=== PATIENT | female | born 1935 | race Caucasian/White ===

== ENCOUNTER 2016-08-15 10:31 | Outpatient (CLI) | payer MEDICARE, OTHER | END 2016-08-15 10:32 | disposition home or self-care (01) | LOC: RT 10:31 | PROVIDERS: ATTEND Internal Medicine Cardiovascular Disease | DX: I25.10 Atherosclerotic heart disease of native coronary artery without angina pectoris (principal) | CPT/HCPCS: 93005 ==

== ENCOUNTER 2016-10-18 10:49 | Outpatient (CLI) | payer MEDICARE ==
--- NOTE | 2016-10-21 08:42 | Ultrasound Report ---
BILATERAL LOWER EXTREMITY ABIs: 10/18/2016 CLINICAL INDICATION: Edema. TECHNIQUE: Real-time sonographic vascular imaging was performed by the fire control mechanic through the lower extremities utilizing both color-flow and Doppler flow analysis. Multiple inside sales representative static images were saved for review. RIGHT SIDE SITE PSV WAVEFORM STEN BACON SLICER 24.6 biphasic DPA 16.9 biphasic LEFT SIDE SITE PSV WAVEFORM STEN BACON SLICER 39 biphasic DPA 19.3 biphasic TECHNIQUE: Real-time scanning was performed. SYSTOLIC PRESSURES RIGHT LEFT BRACHIAL ARTERY 143/76 147/86 POSTERIOR TIBIAL ARTERY 142/81 144/88 ANTERIOR TIBIAL ARTERY --- --- PERONEAL ARTERY --- --- ANKLE/ARM INDEX 0.99 0.97 FINDINGS: ABIs are normal, measuring 0.99 on the right and 0.97 on the left. IMPRESSION: NORMAL ABIs. USAMA
== END 2016-10-18 10:50 | disposition home or self-care (01) ==
LOC: DI 10:49
PROVIDERS: ATTEND Physician Assistant Medical
DX: R60.9 Edema, unspecified (principal)
CPT/HCPCS: 93922

== ENCOUNTER 2017-01-21 12:56 | Outpatient (CLI) | payer MEDICARE ==
[2017-01-21] MEDS ORDERED: IOPAMIDOL-300 100 ML VIAL IVP ONE ×3 (12:57→15:58)
[2017-01-21 13:32] LABS: CALCIUM 9.5 mg/dL (8.5-10.3); CREATININE 1.1 mg/dL (0.4-1.0); POTASSIUM 4.7 mmol/L (3.5-5.0)
[2017-01-21] MEDS ORDERED: ALBUTEROL NEB 2.5 MG/3 ML INH ONE (14:00)
[2017-01-21] MEDS ORDERED: IOPAMIDOL-300 100 ML VIAL ONE (14:08)
--- NOTE | 2017-01-22 09:44 | CT Report ---
CHEST CT WITH CONTRAST: 01/21/2017 COMPARISON STUDY: None. INDICATION: COPD. TECHNIQUE: Axial 5-mm imaging of the chest was performed from the thoracic inlet to the adrenal glan ds with 50 mL Isovue-300. Coronal and sagittal reformats were performed. In accordance with CT protocol optimization, one or more of the following dose reduction techniques w ere utilized for this exam: automated exposure control, adjustment of mA and/or KV based on patient size, or use of iterative reconstructive technique. FINDINGS: An 8-mm solid nodule of the right upper lobe, axial image 19. A 6-mm solid nodule of the right upper lobe, axial image 35. There is moderate pleural thickening on the left, [id number], of unknown chronicity. There is a ssociated atelectasis and/or scar. There are atherosclerotic calcifications of the aorta and coronary arteries. There is an ulcerated plaque of the descending aorta. Calcified gallstones are noted. Limited upper abdomen is otherwise incompletely evaluated. There is a transverse fracture of a mid thoracic vertebral body, likely chronic. IMPRESSION: 1. LEFT PLEURAL THICKENING IS OF UNCERTAIN ETIOLOGY, BUT LIKELY CHRONIC. CORRELATE CLINICALLY. 2. RIGHT UPPER LOBE PULMONARY NODULES ABOVE MEASURE UP TO 8 MM. FOLLOWUP IS AVAILABLE ACCORDING TO [facility]. 3. THORACIC VERTEBRA FRACTURE APPEARS CHRONIC, BUT CORRELATE CLINICALLY. 4. ULCERATED PLAQUE OF THE DESCENDING THORACIC AORTA. JOB #: [id number] EXT JOB #:[id number]
== END 2017-01-21 12:57 | disposition home or self-care (01) ==
LOC: LAB 12:56 → DI 12:57
PROVIDERS: ATTEND Physician Assistant Medical
DX: J44.9 Chronic obstructive pulmonary disease, unspecified (principal); R91.8 Other nonspecific abnormal finding of lung field; I70.0 Atherosclerosis of aorta
CPT/HCPCS: 36415; 71260; 80048; 94060; J7613; Q9967

== ENCOUNTER 2017-07-02 11:39 | Outpatient (CLI) | payer MEDICARE | END 2017-07-02 11:40 | disposition critical access hospital (66) | LOC: EMS 11:39 | PROVIDERS: ATTEND Surgery | DX: R06.02 Shortness of breath (principal); R05 Cough | CPT/HCPCS: A0425; A0429 ==

== ENCOUNTER 2017-07-02 11:57 | Inpatient (IN) | payer MEDICARE ==
--- NOTE | 2017-07-02 12:19 | ED Physician Documentation ---
PD HPI URI - Stated complaint Stated Complaint: COUGH - Chief complaint Chief Complaint: Resp - History obtained from History obtained from: Patient - History of Present Illness Timing - onset: How many days ago (few) Timing duration: Days (3-4) Timing details: Gradual onset, Still present Associated symptoms: Chills, Productive cough, Dyspnea, Other (general weakness) Contributing factors: Sick contact (her caregiver has had cough and Dx with pneumonia and is off work at home.) Review of Systems Constitutional: reports: Myalgias, Fatigue. denies: Fever, Chills Nose: reports: Congestion Cardiac: reports: Pedal edema. denies: Chest pain / pressure, Palpitations, Calf pain Respiratory: reports: Dyspnea, Cough GI: denies: Abdominal Pain, Nausea, Vomiting, Diarrhea Musculoskeletal: reports: Extremity swelling (chronic) Neurologic: reports: Generalized weakness. denies: Focal weakness, Numbness PD PAST MEDICAL HISTORY - Past Medical History Cardiovascular: Congestive heart failure Respiratory: None Neuro: None Endocrine/Autoimmune: None GI: None - Present Medications Home Medications: Ambulatory Orders Medication Instructions Recorded Confirmed Aspirin 81 mg PO 07/02/17 Furosemide [Lasix] 10 mg PO ONCE 07/02/17 07/02/17 Simvastatin 10 mg PO 07/02/17 Verapamil HCl 40 mg PO 07/02/17 - Allergies Allergies/Adverse Reactions: Allergies Allergy/AdvReac Type Severity Reaction Status Date / Time oxycodone Allergy Hallucinati Verified 07/02/17 12:05 ons - Family History Family history: reports: Non contributory PD ED PE NORMAL - Vitals Vital signs reviewed: Yes - General General: Alert and oriented X 3, No acute distress (mild tachypnea.), Well developed/nourished - HEENT HEENT: Ears normal, Pharynx benign - Neck Neck: Supple, no meningeal sign, No adenopathy - Cardiac Cardiac: RRR, No murmur - Respiratory Respiratory: No: Clear bilaterally (congested right base. Hilar/bronchial congestion with phlegm and she has difficulty getting good cough to clear it. Mild accessory muscle use. Severe kyphosis. ) - Abdomen Abdomen: Soft, Non tender - Female Female : Deferred - Rectal Rectal: Deferred - Back Back: No CVA TTP - Derm Derm: Normal color, Warm and dry - Extremities Extremities: No deformity, No tenderness to palpate, No calf tenderness / cord, Other (1+ edema in both ankles) - Neuro Neuro: Alert and oriented X 3, No motor deficit, Normal speech - Psych Psych: Normal mood, Normal affect Results - Vitals Vitals: Vital Signs - 24 hr 07/02/17 07/02/17 07/02/17 12:00 13:09 15:00 Temperature 37.4 C Heart Rate 93 86 83 Respiratory 26 H 28 H 26 H Rate Blood Pressure 168/96 H 128/75 O2 Saturation 91 L 91 L Oxygen O2 Source Nasal cannula - Labs Labs: Laboratory Tests 07/02/17 15:06 WBC 6.3 RBC 3.78 L Hgb 12.3 Hct 39.1 MCV 103.3 H MCH 32.5 H MCHC 31.4 L RDW 14.7 Plt Count 262 MPV 6.9 L Neut # 6.0 Lymph # 0.3 L [place] # 0.1 Eos # 0.0 Baso # 0.0 Absolute Nucleated RBC 0.02 Nucleated RBC % 0.3 PD MEDICAL DECISION MAKING - ED course Complexity details: re-evaluated patient (breathing improved with neb and some sputum cleared. However, off oxygen, she still goes down to 89-91% and is looking tachypneic. Better on oxygen. Will repeat neb. ), considered differential (seems like bronchitis vs pneumonia. Has mild hypoxia with some wheezing sounds and rattling phlegm. Habitus makes clearing sputum and coughing difficult. Will give IV abx and meds and talk with hospitalist. ), d/w patient Departure - Departure Clinical Impression: Hypoxia Pneumonia Qualifiers: Pneumonia type: due to unspecified organism Laterality: right Lung location: lower lobe of lung Qualified Code(s): J18.1 - Lobar pneumonia, unspecified organism Condition: Stable Record reviewed to determine appropriate education?: Yes
[2017-07-02] MEDS ORDERED: DEXAMETHASONE 10 MG/ML VIAL PO STA (12:43)
[2017-07-02] MEDS ORDERED: ALBUTEROL NEB 2.5 MG/3 ML INH STA (12:43)
[2017-07-02] MEDS ORDERED: BENZONATATE 100 MG CAPSULE PO STA (12:43)
[2017-07-02] MEDS ORDERED: CHERRY SYRUP 10 ML UDC PO ONE (12:59)
--- NOTE | 2017-07-02 14:41 | XRAY Preliminary Report ---
Exam: XR CHEST 2 VIEW X-RAY IMPRESSION: Right lower lobe airspace disease with small reactive right-sided pleural effusion. [facility] SITE ID: [id number]
--- NOTE | 2017-07-02 14:41 | XRAY Report ---
EXAM: CHEST RADIOGRAPHY EXAM DATE: 07/02/2017 02:13 PM. CLINICAL HISTORY: Productive cough x 3 days. COMPARISON: None. TECHNIQUE: 2 views. FINDINGS: Lungs/Pleura: Irregular opacities in the right lung base posteriorly with small, likely reactive, ple ural effusion on the right. Mediastinum: Severe kyphosis of the thoracic spine with limits evaluation of the mediastinal structur es. Other: None. IMPRESSION: Right lower lobe airspace disease with small reactive right-sided pleural effusion. [facility] Referring Provider Line: [phone] SITE ID: [id number]
[2017-07-02] MEDS ORDERED: cefTRIAXone 1 GM in SODIUM CHLORIDE 0.9% MINIBAG 100 ML IV STA (15:11)
[2017-07-02] MEDS ORDERED: AZITHROMYCIN INJ 500 MG in SODIUM CHLORIDE 0.9% 250 ML IV STA (15:11)
[2017-07-02 15:13] LABS: BASOPHILS % (AUTO) 0.5 %; HGB - HEMOGLOBIN 12.3 g/dL (12.0-16.0); LYMPHOCYTES # (AUTO) 0.3 10^3/uL (1.5-3.5); MEAN CORPUSCULAR HEMOGLOBIN 32.5 pg (27.0-31.0); MEAN CORPUSCULAR HGB CONC 31.4 g/dL (32.0-36.0); MEAN CORPUSCULAR VOLUME 103.3 fL (81.0-99.0); MEAN PLATELET VOLUME 6.9 fL (7.9-10.8); MONOCYTES # (AUTO) 0.1 10^3/uL (0.0-1.0); MONOCYTES % (AUTO) 1.6 %; NEUTROPHILS % (AUTO) 93.9 %; PLT - PLATELET COUNT 262 10^3/uL (130-450); RED BLOOD COUNT 3.78 10^6/uL (4.20-5.40); RED CELL DISTRIBUTION WIDTH 14.7 % (12.0-15.0); WHITE BLOOD COUNT 6.3 x10^3/uL (4.8-10.8)
[2017-07-02 15:24] LABS: ALBUMIN 3.7 g/dL (3.2-5.5); ALKALINE PHOSPHATASE 36 IU/L (42-121); ALT ALANINE AMINOTRANSFERASE < 10 IU/L (10-60); AST ASPARTATE AMINOTRANSFERASE 17 IU/L (10-42); BILIRUBIN,TOTAL 0.3 mg/dL (0.2-1.0); BUN - BLOOD UREA NITROGEN 27 mg/dL (6-20); CALCIUM 9.3 mg/dL (8.5-10.3); CARBON DIOXIDE - CO2 28 mmol/L (21-32); CHLORIDE 98 mmol/L (101-111); CREATININE 1.2 mg/dL (0.4-1.0); GFR - MDRD 43 (>89); GLUCOSE 104 mg/dL (70-100); LIPASE 21 U/L (22-51); SODIUM 137 mmol/L (135-145); TOTAL PROTEIN 7.5 g/dL (6.7-8.2)
[2017-07-02] MEDS ORDERED: ONDANSETRON ODT 4 MG TABLET TL PRN (15:30)
[2017-07-02] MEDS ORDERED: ONDANSETRON 4 MG/2 ML VIAL IVP PRN (15:30)
[2017-07-02] MEDS ORDERED: MORPHINE 2 MG/ML SYRINGE IVP STA (15:34)
[2017-07-02] MEDS: SODIUM CHLORIDE FLUSH 0.9% 10 ML SYRINGE IVP SCH (17:37)
--- NOTE | 2017-07-02 19:32 | HISTORY & PHYSICAL EXAMINATION ---
DATE OF SERVICE: 07/02/2017 Physician: Laverne Erwin MD PRIMARY CARE PROVIDER: MIROSLAVA Cooper ADMITTING PROVIDER: Laverne Erwin MD CHIEF COMPLAINT: Cough, chest congestion with decreasing appetite for 2 days. HISTORY OF PRESENT ILLNESS: The patient is an 82-year-old female who lives by herself, but has daily help with a care provider named Alyse. The patient herself has COPD, and smokes about half a pack a day on a daily basis. Her lung capacity and appetite are severely diminished by the fact that she has severe kyphoscoliosis of her spine. So her stomach is compressed, and her upper lung volumes are compressed. She has lost about 25-30 pounds over the last 5-6 years because of this. She lives in chronic daily pain. She eats frequent small meals, and was doing well. Her caregiver does most of the housework in the house and helps her get her food together, helps her bathe. She has no loss of cognitive function over the years. It is just physical disability that is diminished. Alyse, her caregiver, got lung cancer and has finished radiation and chemotherapy. She came down with pneumonia. She last saw Alyse on 06/30/2017. So she was by herself yesterday and started having cough, chest congestion. Today, the cough and chest congestion progressed to the point that she started to realize she really had no energy to get up and do anything. She started looking at her surroundings with a practical eye. She realized that she had no desire to want to eat, nor does she have a desire to get up and "rummage through the refrigerator" or get up to go to the bathroom. She recognizes that it is difficult to get her to doctor appointments. She would need a van, and that is a day in advance warning, and if she gets to the doctor's office, she sometimes has to wait anywhere from half an hour to 2 hours to get into that appointment. That then delays the van and sometimes she misses her van and has to ask her caregiver to pick her up. So she decided to call EMS and get straight to an evaluation here at the hospital rather than go to her doctor's office. She denies fever or chills. It has just been the cough, chest congestion, lack of appetite. In the emergency room, she was seen by Dr. Marvin who found her to be afebrile. Normotensive. 91% on room air when she came in. For the rest of her stay in the emergency room she required 2 liters nasal cannula. She was in no respiratory distress, but had some chest congestion. Chest x-ray shows a right lower lobe pneumonia. This patient is being followed for pulmonary nodules. She has 2 right upper lobe nodules on CT. She also has calcified pleural plaquing, and the same CTA showed her to have calcified gallstones, and an ulcerated thoracic aorta, though CT did not show infiltrate in the right lower lobe. The patient is now admitted for pneumonia. PAST MEDICAL HISTORY 1. Severe kyphoscoliosis with a C-curvature of her body habitus. This resulted ultimately in a patient who is always looking down or slightly forward, using a walker with slow limited mobility and chronic pain. She has been evaluated by Thoracic Surgery in [place], and she is not a candidate since most of her deformity is strictly from osteoporosis and compression fractures. Bracing will not help. In the past, she has been offered physical therapy with limited relief as a result and over the last couple of years she has really declined doing physical therapy. 2. Chronic obstructive pulmonary disease. Pneumonia in July 2010. Pulmonary function studies show her to have an FVC of 0.83, which is 39% of normal, an FEV1 of 0.77, which is 49% of normal, and an FEV1/FVC is 93%. She does respond to bronchodilators. The test is interpreted as severe restriction. Minimal obstruction. 3. Coronary artery disease. In 2004, she underwent a left cataract extraction with intraocular lens implant. One hour after surgery she had tremendous shortness of breath and slight chest pressure. She was taken to the emergency room where she was felt to be in pulmonary edema. An echocardiogram showed her to have left ventricular concentric hypertrophy that was mild, ejection fraction of 60-65% with grade [address] angiogram showed her to have proximal to mid left circumflex lesion that was severe. She was sent to see cardiology and cardiology scheduled her for coronary angiogram. The patient vaguely remembers that episode and does not remember any intervention being required. I do not have any report on that. She has recently been seen by Dr. Rome for her history of congestive heart failure. That was in the last year. Dr. Rome made no changes in her status or management. 4. Osteoporosis. Wedge compression fractures. Resulted in kyphosis, scoliosis. Chronic pain. In the past, she has been on calcium, vitamin D, and Boniva. 5. Right breast cancer with right mastectomy in 2000. 6. Pulmonary nodule as noted above. 7. Renal artery stenosis with right nephrectomy as treatment. 8. Intermittent hyperkalemia in the past. 9. Generalized osteoarthritis. 10. Hyperlipidemia. 11. Hypertension. 12. Chronic edema of the left leg since about 2012. She has had 2 venous Dopplers, and they have not shown any DVT. She has had gradually developing blue toe on that left leg. ABIs done in the last year here show the right leg to be 0.99 and the left leg to be 0.97. 13. Diverticulosis on colonoscopy in July 2009. 14. G0, P0. Last Pap smear was approximately mid , normal. 15. Functional constipation. Has been getting gradually worse over the last 2- 3 years. 16. Unanticipated weight loss secondary to stomach compression. ALLERGIES: SHE IS ALLERGIC TO OXYCODONE. This was in the form of Percocet, which made her hallucinate and get delirious. MEDICATIONS 1. Aspirin 81 mg a day. 2. Lasix 10 mg a day of a 20 mg tablet. She uses this as needed for the left leg edema. 3. Potassium 10 mEq a day. 4. Simvastatin 10 mg a day. 5. Verapamil 120 mg daily sustained release. SOCIAL HISTORY: She currently lives by herself. Has caregivers, for the last 5 years. First caregiver was a friend of hers and a male. Lived with her for 3 years. He moved out when he needed to be closer to his family. Her current caregiver is Alyse. They have hit it off really well. They both smoke, love to talk, love to watch TV. She is from her since 1980. Has not seen him in decades. She still relies on his [place] benefits so wants him to stay alive as long as possible. She does have an adopted son, he works for the [employer] in [place] and lives in [facility] from [facility]. She last saw him before [place], but they talk on the phone about once a week. She continues to smoke. Does about half a pack per day. When she tries to cut down, she will do 5 cigarettes a day. She drinks anywhere from 3 to 4 drinks at most on a daily basis and go down to 1 drink a day. Has done that for decades. She has no history of recreational substance abuse. 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 FAMILY HISTORY: Dad is of complications of brain mets from colon cancer. Mom had colon cancer. One half sibling had colon cancer. REVIEW OF SYSTEMS GENERAL: Exam shows her to have the weight loss over the last few years, decreasing mobility, increasing dependence on caregivers. HEENT: Vision is blurred, she wears readers, it is difficult for her to see the writing on the screen across from her in the bed where she watches the TV. She denies problems with swallowing, speaking. She has terrible dentition, is missing a few teeth and makes it hard for her to chew as well. No problems with deafness. Denies any problems with allergic rhinitis, ear problems, or eustachian tube dysfunction. PULMONARY: Chronically short of breath. Uses a walker because of it and walks very slowly. PFTs as above. New cough and phlegm in the last 2 days. No hemoptysis. CARDIAC: Positive as above. No recent angina, chronic left leg edema is maintained. No right leg edema. No palpitations. No jaw pain. GASTROINTESTINAL: She will get intermittently constipated. Require MiraLax. She will then have a blowout followed by liquid stool. No abdominal pain. She attributes the constipation to her body habitus and inability to eat a normal meal. For instance, the food brought her table tonight for dinner is "a lot." She says the plate brought to her for dinner here in the hospital is enough for a weeks worth of food. JOINTS: Hurt all over. Hands especially. The left blue toe is not painful at all. Chronic back pain, chronic thoracic pain. Chronic left leg edema. GRADING SUPERVISOR: Denies seizures, syncope, memory loss. While her physical status is definitely deteriorated, she stoutly maintains that she has great cognitive function. PHYSICAL EXAMINATION VITAL SIGNS: Temperature is 36.8, pulse is 87, blood pressure 118/58, respirations are 24. She is 95% on 2 liters. GENERAL: This lady is tiny and swallowed in her hospital bed. She is bent over and severely kyphotic to the point that her face almost faces down. She never looks directly at me because it is too difficult to lift up her head and look at me. But she is able to bring the plate down to her lap and slowly using her right and left hands brings food into her mouth and chew slowly. She is incredibly cachectic. HEAD AND NECK: Exam shows well groomed hair. Pupils that are reactive, sclerae are nonicteric. Moist and hydrated oral mucosa. Very poor teeth with some teeth missing in the upper gums. Hard for her to chew that pineapple. Neck has shotty adenopathy with no goiter or bruits. She looks like she has an old sebaceous cyst that is scarred over on the C-spine skin area. LUNGS: Diminished breath sounds at the bases, I do not hear anything at the apices because of probable compression. She has mild tachypnea, mild pursed lip breathing in talking to me and trying to eat, but no increased respiratory effort with no use of accessory muscles. PMI is difficult to get. I cannot have her lie down flat. CARDIAC: Exam has a regular rate and rhythm with a soft systolic murmur at the left lower sternal border, but I hear partial bowel sounds on top of that because of her body habitus. ABDOMEN: The abdomen shows a protuberant abdominal wall because of the C-spine curvature of her spine bringing her forward and down. Nontender, normal bowel sounds. EXTREMITIES: Left leg edema with chronic venous stasis hyperpigmentation on the left anterior marcos. The left great toe is blue, and she has 20 second delayed capillary refill. Again, nonpainful. She has osteoarthritic deformities of the fingers and toes. I do not feel left foot pulse. Right foot pulse on dorsalis pedis area barely palpable. The left leg is more stiff and extended at the knee and less flexible than the right leg. She thinks it is because she sits that way propping up her leg watching TV all day long. NEUROLOGIC: She is alert and oriented to person, place, and time. Can follow 2 -step commands. Cranial nerves appear remarkably intact in spite of the blurred vision with I not tested. She is using her arms spontaneously to do fine motor movement of getting a plate off the table, bringing food to her mouth, using a fork and knife, but preferring to use her fingers. No tremors. Generalized deconditioning and weakness of the upper extremities. Her lower extremities appear to be weaker than her arms. Left leg, particularly, in that it is more cumbersome and difficult to move, and she says that is because of edema, not so much weakness, but plantar and dorsiflexion is intact. She lifts both legs off the bed for me. LABORATORY DATA: Sodium 137, potassium 4.5, BUN 27, creatinine 1.2, random glucose 104, lactic acid 1.6. White cell count 6.3, hemoglobin 12.3, hematocrit 39.1, platelet 262. Chest x-ray as above. ASSESSMENT 1. Community-acquired pneumonia in an elderly female who lives alone, has decreased support services at this time, and has hypoxia on exam. Plan - Admission for IV antibiotics in the form of Rocephin and azithromycin. ATTESTATION: This patient will be admitted for less than 96 hours. Adjust antibiotics on the basis of blood cultures. Try to obtain sputum cultures. 2. Hypoxia. In looking at her pulmonary function studies before she has a severe obstruction, but there is no note of her oxygenation status that I can find. I will see if I can reread her pulmonary function tests and find what her baseline O2 saturation is. She may be chronically hypoxic on the basis of lung compression from her spinal deformity. Nevertheless, provide with 1-2 liters p.r.n. and keep O2 saturations greater than 92%. She does not appear to be in any acute respiratory failure. 3. Moderate calorie malnutrition in this lady who has decreased muscle mass diffusely, loss of weight 25-30 pounds in the last five years, and may be attributed strictly to the structural abnormalities of her spine causing cardiac, pulmonary, and stomach compression. Will start with just resuming a regular diet at this time. She may be a candidate for diet supplements. Do nutrition consult. 4. Hypertension. Controlled at this time. Resume usual medications. 5. Left toe cyanosis. Arterial brachial indices in the past have indicated relatively normal arterial brachial indices. But capillary refill is remarkably delayed. She does describe having Raynaud's in her hands and toes, but this is an isolated toe problem. She does have an ulcerated thoracic artery. We will recheck arterial brachial indices. She is concerned enough to wonder if her toe is going to , but it is remarkably nonpainful, so it may be Raynaud's in the end. 6. FULL CODE STATUS. 7. Deep venous thrombosis prophylaxis with HARLEEN guillen, if possible. If not, because of her inability to straighten out her body, she may need Venodynes instead. TD: 07/02/2017 19:31 MTDShannan
[2017-07-03] MEDS: SODIUM CHLORIDE FLUSH 0.9% 10 ML SYRINGE IVP SCH ×3 (00:58→20:53)
[2017-07-03] MEDS: ACETAMINOPHEN 325 MG TABLET PO PRN (02:52)
[2017-07-03 05:37] LABS: CALCIUM 8.4 mg/dL (8.5-10.3); CREATININE 1.5 mg/dL (0.4-1.0)
[2017-07-03 05:39] LABS: BASOPHILS % (AUTO) 0.1 %; HGB - HEMOGLOBIN 10.1 g/dL (12.0-16.0); LYMPHOCYTES % (AUTO) 13.2 %; MEAN CORPUSCULAR HEMOGLOBIN 32.6 pg (27.0-31.0); MEAN CORPUSCULAR HGB CONC 31.1 g/dL (32.0-36.0); MEAN CORPUSCULAR VOLUME 104.9 fL (81.0-99.0); MEAN PLATELET VOLUME 7.3 fL (7.9-10.8); MONOCYTES % (AUTO) 1.7 %; PLT - PLATELET COUNT 214 10^3/uL (130-450); RED BLOOD COUNT 3.09 10^6/uL (4.20-5.40); RED CELL DISTRIBUTION WIDTH 14.9 % (12.0-15.0)
[2017-07-03 05:46] LABS: WHITE BLOOD COUNT 1.6 x10^3/uL (4.8-10.8)
[2017-07-03 05:47] LABS: ABNORMAL LYMPHS % (MANUAL) 0 %
[2017-07-03 06:14] LABS: BAND NEUTROPHILS % (MANUAL) 1 %; DIFFERENTIAL COMMENT MANUAL DIFFERENTIAL; LYMPHOCYTES # (MANUAL) 0.2 10^3/uL (1.5-3.5); LYMPHOCYTES % (MANUAL) 15 %; NEUTROPHILS # (MANUAL) 1.3 10^3/uL (1.5-6.6); NEUTROPHILS % (MANUAL) 83 %; PLATELET ESTIMATE, MANUAL NORMAL (130-450,000) (NORMAL); RBC MORPHOLOGY (MULTIPLE) NORMAL APPEARANCE (NORMAL)
[2017-07-03 09:06] LABS: HGB - HEMOGLOBIN 11.3 g/dL (12.0-16.0); MEAN CORPUSCULAR HEMOGLOBIN 33.3 pg (27.0-31.0); MEAN CORPUSCULAR HGB CONC 31.6 g/dL (32.0-36.0); MEAN CORPUSCULAR VOLUME 105.3 fL (81.0-99.0); MEAN PLATELET VOLUME 7.4 fL (7.9-10.8); RED BLOOD COUNT 3.39 10^6/uL (4.20-5.40); WHITE BLOOD COUNT 2.7 x10^3/uL (4.8-10.8)
--- NOTE | 2017-07-03 09:24 | Ultrasound Preliminary Report ---
Exam: US ANKLE BRACHIAL INDEX IMPRESSION: Right QUINTIN 0.6 Left QUINTIN 0.7 [facility] SITE ID: [id number]
[2017-07-03] MEDS: SODIUM CHLORIDE 0.9% 1,000 ML IV SCH ×2 (09:30→23:34)
[2017-07-03] MEDS: POLYETHYLENE GLYCOL 3350 17 GM PACKET PO SCH (09:30)
[2017-07-03] MEDS: ASPIRIN CHEW 81 MG TABLET PO SCH (09:30)
[2017-07-03] MEDS: cefTRIAXone 2 GM in SODIUM CHLORIDE 0.9% MINIBAG 100 ML IV SCH (09:33)
--- NOTE | 2017-07-03 09:51 | Ultrasound Report ---
EXAM: ANKLE-BRACHIAL INDICES EXAM DATE: 07/03/2017 03:21 AM. CLINICAL HISTORY: Worsening cyanosis and cold left toe. COMPARISON: None. TECHNIQUE: Blood pressures obtained of bilateral brachial and posterior tibial arteries. FINDINGS: Blood pressures in mm mercury: Right brachial artery 118/52; left brachial artery 132/67. Right posterior tibial artery 85/43; left posterior tibial artery 93/ 20. Right ankle arm index 0.6. Left ankle arm index of 0.7. Right posterior tibial artery had monophasic Doppler waveform with peak systolic velocity 79 cm/s. Right dorsalis pedis artery had monophasic waveform with a peak systolic velocity 58 cm/s. Left posterior tibial artery had monophasic waveform with PSV 14 cm/s. Left dorsalis pedis artery had monophasic waveform with PSV 42 cm/s. IMPRESSION: 1. Right QUINTIN 0.6. 2. Left QUINTIN 0.7. 3. 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 [facility] Referring Provider Line: [phone] SITE ID: [id number]
[2017-07-03] MEDS: AZITHROMYCIN INJ 500 MG in SODIUM CHLORIDE 0.9% 250 ML IV SCH (10:55)
--- NOTE | 2017-07-03 11:23 | PROVIDER PROGRESS NOTE ---
Subjective - Prog Note Date Prog Note Date: 07/03/17 - Subjective Pt reports feeling: Improved Subjective: pt report her breathing is better.No chest pain, fever, chill. I explained test QUINTIN result to pt. Pt report this is ongoing chronic problem for couple of years. Pt denies pain. The color in bilateral dorsal foot is slight dark red than around skin color. Pt report the foot is always cold. I tried to page vascular surgeon for consult but I could not get call back yet. Pt follow up vascular surgeon as out-pt Current Medications - Current Medications Current Medications: Active Medications Acetaminophen (Tylenol) 650 mg PO Q4HR PRN PRN Reason: Pain 1 to 4 Last Admin: 07/03/17 02:52 Dose: 650 mg Alendronate Sodium (Fosamax) 70 mg PO FR [facility] Aspirin ([facility] [place]aswinder Aspirin) 81 mg PO DAILY [facility] Last Admin: 07/03/17 09:30 Dose: 81 mg Atorvastatin Calcium (Lipitor) 5 mg PO QPM [facility] Calcium Carbonate/Glycine (Oysco-500) 500 mg PO DAILY [facility] Last Admin: 07/03/17 13:47 Dose: 500 mg Heparin Sodium (Porcine) () 2,500 unit SUBQ BID [facility] Last Admin: 07/03/17 13:47 Dose: 2,500 unit Azithromycin 500 mg/ Sodium (Chloride) 250 mls @ 250 mls/hr IV DAILY [facility] Last Admin: 07/03/17 10:55 Dose: 250 mls/hr Ceftriaxone Sodium 2 gm/ (Sodium Chloride) 100 mls @ 200 mls/hr IV DAILY [facility] Last Infusion: 07/03/17 10:05 Dose: Infused Sodium Chloride (Normal Saline 0.9%) 1,000 mls @ 83.333 mls/hr IV .Q12H [facility] Last Admin: 07/03/17 09:30 Dose: 83.333 mls/hr Ondansetron HCl (Zofran Inj) 4 mg IVP Q6HR PRN PRN Reason: Nausea / Vomiting Ondansetron HCl (Zofran Odt) 4 mg TL Q6HR PRN PRN Reason: Nausea / Vomiting Polyethylene Glycol (Miralax) 17 gm PO DAILY [facility] Last Admin: 07/03/17 09:30 Dose: 17 gm Sodium Chloride (Normal Saline Flush 0.9%) 10 ml IVP PRN PRN PRN Reason: NEEDED PER PROVIDER ORDERS Sodium Chloride (Normal Saline Flush 0.9%) 10 ml IVP 0100,0900,1700 [facility] Last Admin: 07/03/17 09:38 Dose: 10 ml Verapamil HCl (Calan Sa) 240 mg PO DAILY [facility] Last Admin: 07/03/17 13:47 Dose: 240 mg Acetaminophen [Tylenol Extra Strength] 1,000 mg PO TID 07/02/17 Alendronate [Fosamax] 70 mg PO FR 07/02/17 Aspirin 81 mg PO DAILY 07/02/17 Calcium Carbonate/Vitamin D3 [Calcium 600 + Vit D 400 Tablet] 1 each PO DAILY Furosemide [Lasix] 10 mg PO DAILY 07/02/17 Polyethylene Glycol 3350 [Miralax] 2 tbs PO TID 07/02/17 Potassium Chloride 10 meq PO .2-3/WEEK 07/02/17 Simvastatin 10 mg PO QPM 07/02/17 Verapamil HCl [Verapamil ER] 240 mg PO DAILY 07/02/17 Objective - Vital Signs/Intake & Output Reviewed Vital Signs: Yes Vital Signs: Vital Signs x48h Temp Pulse Resp BP Pulse Ox 07/03/17 08:42 37.2 C 90 16 129/60 98 07/03/17 05:14 37.0 C 91 20 118/56 L 97 Intake & Output: Intake & Output 06/30/17 07/01/17 07/02/17 07/03/17 23:59 23:59 23:59 23:59 Intake Total 590 460 Balance 590 460 - Objective General Appearance: positive: No acute distress, Alert. negative: Lethargic Eyes Bilateral: positive: Normal inspection, PERRL, No lid inflammation, Conjunctivae nml ENT: positive: ENT inspection nml, Pharynx nml, No signs of dehydration. negative: Purulent nasal drainage, Pharyngeal erythema, Oral lesions Neck: positive: Nml inspection, Thyroid nml, No JVD, Trachea midline. negative : Thyromegaly, Lymphadenopathy (R), Lymphadenopathy (L), Stiff neck, Carotid bruit, Swelling/bruising, Tracheal deviation Respiratory: positive: Chest non-tender, No respiratory distress, Breath sounds nml. negative: Wheezes, Rales, Rhonchi Cardiovascular: positive: Regular rate & rhythm, No murmur, No gallop. negative : Irregularly irregular, Extrasystoles, Tachycardia, Bradycardia, JVD present, Systolic murmur, Diastolic murmur Peripheral Pulses: 1+ Dorsalis pedis (R), 1+ Dorsalis pedis (L), 2+ Radial (R), 2+ Radial (L) Abdomen: positive: Non-tender, No organomegaly, Nml bowel sounds, No distention. negative: Tenderness, Guarding, Rebound Back: positive: Nml inspection, Other (severe kyphoscoloiosis). negative: CVA tenderness (R), CVA tenderness (L) Skin: positive: Color nml, No rash, Warm, Dry, Cyanosis. negative: Diaphoresis , Pallor Extremities: positive: Non-tender, Full ROM. negative: Calf tenderness, Joint swelling, Zen's sign/cords Neurologic/Psychiatric: positive: Oriented x3, Sensation nml, Mood/affect nml. negative: Weakness, Sensory loss, Facial droop, Slurred/abnml speech, Depressed mood/affect - Lab Results Fish Bones: 07/03/17 08:50 07/03/17 05:23 Other Labs: Lab Results x24hrs 07/03/17 07/03/17 07/03/17 Range/Units 08:50 05:23 05:23 WBC 2.7 L 1.6 L* (4.8-10.8) x10^3/uL RBC 3.39 L 3.09 L (4.20-5.40) 10^6/uL Hgb 11.3 L 10.1 L (12.0-16.0) g/dL Hct 35.7 L 32.4 L (37.0-47.0) % MCV 105.3 H 104.9 H (81.0-99.0) fL MCH 33.3 H 32.6 H (27.0-31.0) pg MCHC 31.6 L 31.1 L (32.0-36.0) g/dL RDW 15.0 14.9 (12.0-15.0) % Plt Count 225 214 (130-450) 10^3/uL MPV 7.4 L 7.3 L (7.9-10.8) fL Neut # Not Reportable Lymph # Not Reportable [place] # Not Reportable Eos # Not Reportable Baso # Not Reportable Absolute Nucleated RBC Not Reportable Total Counted 100 Band Neuts % (Manual) 1 (0 - 10) % Abnorm Lymph % (Manual) 0 % Nucleated RBC % Not Reportable Neutrophils # (Manual) 1.3 L (1.5-6.6) 10^3/uL Lymphocytes # (Manual) 0.2 L (1.5-3.5) 10^3/uL Monocytes # (Manual) 0.0 (0.0-1.0) 10^3/uL Eosinophils # (Manual) 0.0 (0-0.7) 10^3/uL Basophils # (Manual) 0.0 (0-0.1) 10^3/uL Differential Comment MANUAL DIFFERENTIAL Platelet Estimate NORMAL (130-450,000) (NORMAL) RBC Morph Micro Appear NORMAL APPEARANCE (NORMAL) Sodium 134 L (135-145) mmol/L Potassium 5.2 H (3.5-5.0) mmol/L Chloride 100 L (101-111) mmol/L Carbon Dioxide 26 (21-32) mmol/L Anion Gap 8.0 (6-13) BUN 33 H (6-20) mg/dL Creatinine 1.5 H (0.4-1.0) mg/dL Estimated GFR (MDRD) 33 L (>89) Glucose 197 H (70-100) mg/dL Calcium 8.4 L (8.5-10.3) mg/dL Assessment/Plan - Problem List (1) Pneumonia Impression: continue antibiotic, Rocephin and Azith following blood and sputum culture daily lab, vital monitor Qualifiers: Pneumonia type: due to unspecified organism Laterality: right Lung location: lower lobe of lung Qualified Code(s): J18.1 - Lobar pneumonia, unspecified organism (2) Hypoxia Impression: pt seems no acute respiratory distress. Now it is 98% with 2 liter of O2 continue RT consult, O2 supplement as needed (3) Malnutrition Impression: pt's BMI is 24, but pt report she loss weight recently continue nutrition consult, follow up the recommendation (4) HTN (hypertension) Impression: stable, continue home meds (5) Cyanosis Impression: slight dark colon of bilateral dorsal foot. But QUINTIN on left 0.7, and right 0.6, and weakness of pulse bilateral foot. Pt is on ASA. I called vascular surgeon on but did not receive call back yet. Pt report her foot color has been slight changing for couple of years. Pt denies pain. Pt report she always has cold foot. It seems not urgent problem. Pt may need out-pt vascular surgeon
[2017-07-03] MEDS: VERAPAMIL ER 120 MG TABLET PO SCH (13:47)
[2017-07-03] MEDS: CALCIUM CARB (OYSTER SHELL) 500 MG TABLET PO SCH (13:47)
[2017-07-03] MEDS: HEPARIN 5,000 UNIT/ML VIAL SUBQ SCH ×2 (13:47→21:08)
[2017-07-03] MEDS: ATORVASTATIN 10 MG TABLET PO SCH (21:01)
[2017-07-04] MEDS: ALBUTEROL NEB 2.5 MG/3 ML INH PRN ×2 (00:10→11:30)
[2017-07-04] MEDS ORDERED: ACETAMINOPHEN 1,000 MG/100 ML 100 ML IV SCH (01:32)
[2017-07-04] MEDS: SODIUM CHLORIDE FLUSH 0.9% 10 ML SYRINGE IVP SCH ×3 (02:20→17:02)
[2017-07-04 05:41] LABS: BASOPHILS % (AUTO) 0.1 %; HGB - HEMOGLOBIN 10.6 g/dL (12.0-16.0); LYMPHOCYTES # (AUTO) 0.7 10^3/uL (1.5-3.5); LYMPHOCYTES % (AUTO) 8.4 %; MEAN CORPUSCULAR HEMOGLOBIN 32.6 pg (27.0-31.0); MEAN CORPUSCULAR VOLUME 105.3 fL (81.0-99.0); MEAN PLATELET VOLUME 7.3 fL (7.9-10.8); MONOCYTES # (AUTO) 0.4 10^3/uL (0.0-1.0); MONOCYTES % (AUTO) 5.6 %; NEUTROPHILS # (AUTO) 6.7 10^3/uL (1.5-6.6); NEUTROPHILS % (AUTO) 85.9 %; PLT - PLATELET COUNT 239 10^3/uL (130-450); RED BLOOD COUNT 3.25 10^6/uL (4.20-5.40); RED CELL DISTRIBUTION WIDTH 14.9 % (12.0-15.0); WHITE BLOOD COUNT 7.7 x10^3/uL (4.8-10.8)
[2017-07-04 05:47] LABS: CALCIUM 8.3 mg/dL (8.5-10.3); CREATININE 1.2 mg/dL (0.4-1.0)
[2017-07-04] MEDS ORDERED: ALENDRONATE 70 MG TABLET PO SCH (06:30)
[2017-07-04] MEDS ORDERED: SODIUM CHLORIDE 0.9% 1,000 ML IV SCH (07:25)
[2017-07-04] MEDS: ACETAMINOPHEN 325 MG TABLET PO PRN ×4 (08:04→20:15)
[2017-07-04] MEDS: CALCIUM CARB (OYSTER SHELL) 500 MG TABLET PO SCH (09:24)
[2017-07-04] MEDS: VERAPAMIL ER 120 MG TABLET PO SCH (09:25)
[2017-07-04] MEDS: ASPIRIN CHEW 81 MG TABLET PO SCH (09:25)
[2017-07-04] MEDS: cefTRIAXone 2 GM in SODIUM CHLORIDE 0.9% MINIBAG 100 ML IV SCH (09:27)
[2017-07-04] MEDS: HEPARIN 5,000 UNIT/ML VIAL SUBQ SCH ×2 (09:28→20:14)
[2017-07-04] MEDS: AZITHROMYCIN INJ 500 MG in SODIUM CHLORIDE 0.9% 250 ML IV SCH (10:21)
--- NOTE | 2017-07-04 11:15 | XRAY Report ---
CHEST X-RAY: 07/04/2017 HISTORY: Pneumonia, increasing hypoxia. COMPARISON: 07/02/2017. FINDINGS: Study is technically limited due to patient body habitus. Left greater than right pleural effusions and bibasilar airspace disease similar to previous. Heart size difficult to assess. Chronic bony changes as before. IMPRESSION: LIMITED CHEST X-RAY GROSSLY STABLE COMPARED WITH 07/02/2017. TD: 07/04/2017 11:14 [facility]
[2017-07-04] MEDS: POLYETHYLENE GLYCOL 3350 17 GM PACKET PO SCH (11:45)
[2017-07-04] MEDS: NICOTINE 14 MG PATCH TOP SCH (11:58)
--- NOTE | 2017-07-04 12:20 | PROVIDER PROGRESS NOTE ---
Subjective - Prog Note Date Prog Note Date: 07/04/17 - Subjective Pt reports feeling: No change Subjective: pt is comfortably laying down at bed. Pt denies complaints. She denies chest pain, fever, chill, cough. Pt was reported to have hypoxia on last night, it seems improved. It may be concerned from pt's anxiety. CXR is pending. Pt does report she still smokes cigarette now. Current Medications - Current Medications Current Medications: Active Medications Acetaminophen (Tylenol) 650 mg PO Q4HR PRN PRN Reason: Pain 1 to 4 Last Admin: 07/04/17 11:55 Dose: 650 mg Albuterol () 2.5 mg INH RTQ4H PRN PRN Reason: Wheezing Last Admin: 07/04/17 11:30 Dose: 2.5 mg Alendronate Sodium (Fosamax) 70 mg PO FR [facility] Last Admin: 07/04/17 02:34 Dose: Not Given Aspirin ([facility]aswinder Aspirin) 81 mg PO DAILY [facility] Last Admin: 07/04/17 09:25 Dose: 81 mg Atorvastatin Calcium (Lipitor) 5 mg PO QPM [facility] Last Admin: 07/03/17 21:01 Dose: 5 mg Calcium Carbonate/Glycine (Oysco-500) 500 mg PO DAILY [facility] Last Admin: 07/04/17 09:24 Dose: 500 mg Heparin Sodium (Porcine) () 2,500 unit SUBQ BID [facility] Last Admin: 07/04/17 09:28 Dose: 2,500 unit Azithromycin 500 mg/ Sodium (Chloride) 250 mls @ 250 mls/hr IV DAILY [facility] Last Infusion: 07/04/17 11:25 Dose: Infused Ceftriaxone Sodium 2 gm/ (Sodium Chloride) 100 mls @ 200 mls/hr IV DAILY [facility] Last Admin: 07/04/17 09:27 Dose: 200 mls/hr Nicotine (Nicoderm) 1 patch TOP DAILY [facility] Last Admin: 07/04/17 11:58 Dose: Not Given Ondansetron HCl (Zofran Inj) 4 mg IVP Q6HR PRN PRN Reason: Nausea / Vomiting Ondansetron HCl (Zofran Odt) 4 mg TL Q6HR PRN PRN Reason: Nausea / Vomiting Polyethylene Glycol (Miralax) 17 gm PO DAILY [facility] Last Admin: 07/04/17 11:45 Dose: Not Given Sodium Chloride (Normal Saline Flush 0.9%) 10 ml IVP PRN PRN PRN Reason: NEEDED PER PROVIDER ORDERS Sodium Chloride (Normal Saline Flush 0.9%) 10 ml IVP 0100,0900,1700 [facility] Last Admin: 07/04/17 11:46 Dose: Not Given Verapamil HCl (Calan Sa) 240 mg PO DAILY [facility] Last Admin: 07/04/17 09:25 Dose: 240 mg Acetaminophen [Tylenol Extra Strength] 1,000 mg PO TID 07/02/17 Alendronate [Fosamax] 70 mg PO FR 07/02/17 Aspirin 81 mg PO DAILY 07/02/17 Calcium Carbonate/Vitamin D3 [Calcium 600 + Vit D 400 Tablet] 1 each PO DAILY Furosemide [Lasix] 10 mg PO DAILY 07/02/17 Polyethylene Glycol 3350 [Miralax] 2 tbs PO TID 07/02/17 Potassium Chloride 10 meq PO .2-3/WEEK 07/02/17 Simvastatin 10 mg PO QPM 07/02/17 Verapamil HCl [Verapamil ER] 240 mg PO DAILY 07/02/17 Objective - Vital Signs/Intake & Output Reviewed Vital Signs: Yes Vital Signs: Vital Signs x48h Temp Pulse Pulse Resp BP Pulse Ox 07/04/17 11:34 107 H 20 07/04/17 08:18 90 L 07/04/17 08:04 36.7 C 82 24 151/79 H 95 Intake & Output: Intake & Output 07/01/17 07/02/17 07/03/17 07/04/17 23:59 23:59 23:59 23:59 Intake Total 590 1948 690 Output Total 50 Balance 590 1898 690 - Objective General Appearance: positive: No acute distress, Alert. negative: Lethargic Eyes Bilateral: positive: Normal inspection, PERRL, No lid inflammation, Conjunctivae nml ENT: positive: ENT inspection nml, Pharynx nml, No signs of dehydration. negative: Purulent nasal drainage, Pharyngeal erythema, Oral lesions Neck: positive: Nml inspection, Thyroid nml, No JVD, Trachea midline. negative : Thyromegaly, Lymphadenopathy (R), Lymphadenopathy (L), Stiff neck, Carotid bruit, Swelling/bruising, Tracheal deviation Respiratory: positive: Chest non-tender, No respiratory distress, Other (mild crackles at right lower lobe). negative: Wheezes, Rales Cardiovascular: positive: Regular rate & rhythm, No murmur, No gallop. negative : Irregularly irregular, Extrasystoles, Tachycardia, Bradycardia, Systolic murmur, Diastolic murmur Peripheral Pulses: 2+ Radial (R), 2+ Radial (L), 2+ Dorsalis pedis (R), 2+ Dorsalis pedis (L) Abdomen: positive: Non-tender, No organomegaly, Nml bowel sounds, No distention. negative: Tenderness, Guarding, Rebound Back: positive: Other (severe kyph). negative: CVA tenderness (R), CVA tenderness (L) Skin: positive: Color nml, No rash, Warm, Dry. negative: Cyanosis, Diaphoresis , Pallor Extremities: positive: Non-tender, Full ROM, Other (mild color dark at bilateral dorsal of foot). negative: Calf tenderness, Joint swelling, Zen's sign/cords Neurologic/Psychiatric: positive: Oriented x3, Sensation nml. negative: Weakness, Sensory loss, Facial droop, Slurred/abnml speech, Depressed mood/ affect - Lab Results Fish Bones: 07/04/17 05:00 07/04/17 05:00 Other Labs: Lab Results x24hrs 07/04/17 07/04/17 Range/Units 05:00 05:00 WBC 7.7 (4.8-10.8) x10^3/uL RBC 3.25 L (4.20-5.40) 10^6/uL Hgb 10.6 L (12.0-16.0) g/dL Hct 34.2 L (37.0-47.0) % MCV 105.3 H (81.0-99.0) fL MCH 32.6 H (27.0-31.0) pg MCHC 31.0 L (32.0-36.0) g/dL RDW 14.9 (12.0-15.0) % Plt Count 239 (130-450) 10^3/uL MPV 7.3 L (7.9-10.8) fL Neut # 6.7 H (1.5-6.6) 10^3/uL Lymph # 0.7 L (1.5-3.5) 10^3/uL [place] # 0.4 (0.0-1.0) 10^3/uL Eos # 0.0 (0.0-0.7) 10^3/uL Baso # 0.0 (0.0-0.1) 10^3/uL Absolute Nucleated RBC 0.01 x10^3/uL Nucleated RBC % 0.1 /100WBC Sodium 135 (135-145) mmol/L Potassium 4.9 (3.5-5.0) mmol/L Chloride 100 L (101-111) mmol/L Carbon Dioxide 26 (21-32) mmol/L Anion Gap 9.0 (6-13) BUN 30 H (6-20) mg/dL Creatinine 1.2 H (0.4-1.0) mg/dL Estimated GFR (MDRD) 43 L (>89) Glucose 103 H (70-100) mg/dL Uric Acid 4.0 (2.6-7.2) mg/dL Calcium 8.3 L (8.5-10.3) mg/dL Assessment/Plan - Problem List (1) Pneumonia Impression: (1) Pneumonia Impression: CXR today reveals without acute changing as before continue antibiotics Rocephin and Azithyromycin preliminary blood culture negative continue RT and INH PRN treatment, vital monitor continue antibiotic, Rocephin and Azith following blood and sputum culture daily lab, vital monitor (2) Hypoxia Impression: last night pt had episode of hypoxia CXR reveals without acute changing, stable add Duoneb, with Albuterol PRN, supplement of O2 as PRN advise pt quit smoking cigarette, add Nicotin patch pt seems no acute respiratory distress. Now it is 98% with 2 liter of O2 continue RT consult, O2 supplement as needed (3) Malnutrition Impression: follow up communications designer recommendations, stabilize the weight pt's BMI is 24, but pt report she loss weight recently continue nutrition consult, follow up the recommendation (4) HTN (hypertension) Impression: stable, continue home meds (5) Cyanosis Impression: pt report it is her chronic issue. Pt decline further intervention at this point. Pt may need out-pt vascular surgeon slight dark colon of bilateral dorsal foot. But QUINTIN on left 0.7, and right 0.6, and weakness of pulse bilateral foot. Pt is on ASA. I called vascular surgeon on [facility] but did not receive call back yet. Pt report her foot color has been slight changing for couple of years. Pt denies pain. Pt report she always has cold foot. It seems not urgent problem. Pt may need out-pt vascular surgeon Qualifiers: Pneumonia type: due to unspecified organism Laterality: right Lung location: lower lobe of lung Qualified Code(s): J18.1 - Lobar pneumonia, unspecified organism
[2017-07-04] MEDS: IPRATROPIUM/ALBUTEROL 3 ML NEB INH PRN (16:04)
[2017-07-04] MEDS ORDERED: FUROSEMIDE 20 MG/2 ML VIAL IVP ONE (17:00)
[2017-07-04] MEDS: methylPREDNISolone SUCCINATE 40 MG/ML VIAL IVP SCH (17:03)
[2017-07-04] MEDS: ATORVASTATIN 10 MG TABLET PO SCH (20:14)
[2017-07-05] MEDS: ACETAMINOPHEN 325 MG TABLET PO PRN (00:02)
[2017-07-05 05:34] LABS: CALCIUM 8.3 mg/dL (8.5-10.3); HGB - HEMOGLOBIN 10.7 g/dL (12.0-16.0); LYMPHOCYTES # (AUTO) 0.2 10^3/uL (1.5-3.5); LYMPHOCYTES % (AUTO) 3.8 %; MEAN CORPUSCULAR HEMOGLOBIN 32.2 pg (27.0-31.0); MEAN CORPUSCULAR HGB CONC 30.6 g/dL (32.0-36.0); MEAN PLATELET VOLUME 7.2 fL (7.9-10.8); MONOCYTES % (AUTO) 0.5 %; NEUTROPHILS # (AUTO) 3.9 10^3/uL (1.5-6.6); NEUTROPHILS % (AUTO) 95.7 %; PLT - PLATELET COUNT 212 10^3/uL (130-450); RED BLOOD COUNT 3.32 10^6/uL (4.20-5.40); RED CELL DISTRIBUTION WIDTH 14.6 % (12.0-15.0); WHITE BLOOD COUNT 4.1 x10^3/uL (4.8-10.8)
[2017-07-05] MEDS: methylPREDNISolone SUCCINATE 40 MG/ML VIAL IVP SCH ×4 (06:53→22:25)
[2017-07-05] MEDS: SODIUM CHLORIDE FLUSH 0.9% 10 ML SYRINGE IVP PRN ×2 (06:53→22:25)
[2017-07-05] MEDS ORDERED: SODIUM POLYSTYRENE SULFONATE 15 GM/60 ML BOTTLE PO ONE (08:00)
[2017-07-05] MEDS ORDERED: FUROSEMIDE 20 MG TABLET PO SCH ×2 (09:00)
[2017-07-05] MEDS: HEPARIN 5,000 UNIT/ML VIAL SUBQ SCH ×2 (09:23→22:22)
[2017-07-05] MEDS: CALCIUM CARB (OYSTER SHELL) 500 MG TABLET PO SCH (09:29)
[2017-07-05] MEDS: ASPIRIN CHEW 81 MG TABLET PO SCH (09:29)
[2017-07-05] MEDS: VERAPAMIL ER 120 MG TABLET PO SCH (09:29)
[2017-07-05] MEDS: cefTRIAXone 2 GM in SODIUM CHLORIDE 0.9% MINIBAG 100 ML IV SCH (09:33)
[2017-07-05] MEDS ORDERED: MORPHINE 2 MG/ML SYRINGE IVP PRN (10:14)
[2017-07-05] MEDS: ACETAMINOPHEN 500 MG TABLET PO PRN ×2 (10:40→18:41)
--- NOTE | 2017-07-05 10:43 | PROVIDER PROGRESS NOTE ---
Subjective - Prog Note Date Prog Note Date: 07/05/17 - Subjective Pt reports feeling: Improved Subjective: pt state she feel much better for breathing comparing with yesterday. RT report pt had good Sats after reduce of O2 supplement. Pt report she did not have caregiver now, and desire to d/c to SNF for d/c planing. pt denies fever, chill , CP, headache, abdominal pain. Current Medications - Current Medications Current Medications: Active Medications Acetaminophen (Tylenol) 1,000 mg PO Q8HR PRN PRN Reason: Pain or Fever > 38C (100.4F) Last Admin: 07/05/17 10:40 Dose: 1,000 mg Albuterol () 2.5 mg INH RTQ4H PRN PRN Reason: Wheezing Last Admin: 07/04/17 11:30 Dose: 2.5 mg Albuterol/Ipratropium (Duoneb) 3 ml INH Q4HR PRN PRN Reason: Wheezing Last Admin: 07/04/17 16:04 Dose: 3 ml Alendronate Sodium (Fosamax) 70 mg PO FR [facility] Last Admin: 07/04/17 02:34 Dose: Not Given Aspirin ([facility] Aspirin) 81 mg PO DAILY [facility] Last Admin: 07/05/17 09:29 Dose: 81 mg Atorvastatin Calcium (Lipitor) 5 mg PO QPM [facility] Last Admin: 07/04/17 20:14 Dose: 5 mg Calcium Carbonate/Glycine (Oysco-500) 500 mg PO DAILY [facility] Last Admin: 07/05/17 09:29 Dose: 500 mg Furosemide (Lasix) 10 mg PO DAILY [facility] Guaifenesin (Mucinex) 600 mg PO BID [facility] Heparin Sodium (Porcine) () 2,500 unit SUBQ BID [facility] Last Admin: 07/05/17 09:23 Dose: 2,500 unit Azithromycin 500 mg/ Sodium (Chloride) 250 mls @ 250 mls/hr IV DAILY [facility] Last Infusion: 07/04/17 11:25 Dose: Infused Ceftriaxone Sodium 2 gm/ (Sodium Chloride) 100 mls @ 200 mls/hr IV DAILY [facility] Last Admin: 07/05/17 09:33 Dose: 200 mls/hr Methylprednisolone (Solu-Medrol (40mg Vial)) 30 mg IVP TID [facility] Last Admin: 07/05/17 06:53 Dose: 30 mg Nicotine (Nicoderm) 1 patch TOP DAILY [facility] Last Admin: 07/04/17 11:58 Dose: Not Given Ondansetron HCl (Zofran Inj) 4 mg IVP Q6HR PRN PRN Reason: Nausea / Vomiting Ondansetron HCl (Zofran Odt) 4 mg TL Q6HR PRN PRN Reason: Nausea / Vomiting Polyethylene Glycol (Miralax) 17 gm PO DAILY [facility] Last Admin: 07/04/17 11:45 Dose: Not Given Sodium Chloride (Normal Saline Flush 0.9%) 10 ml IVP PRN PRN PRN Reason: NEEDED PER PROVIDER ORDERS Last Admin: 07/05/17 06:53 Dose: 10 ml Sodium Chloride (Normal Saline Flush 0.9%) 10 ml IVP 0100,0900,1700 [facility] Last Admin: 07/05/17 00:00 Dose: 10 ml Verapamil HCl (Calan Sa) 240 mg PO DAILY [facility] Last Admin: 07/05/17 09:29 Dose: 240 mg Acetaminophen [Tylenol Extra Strength] 1,000 mg PO TID 07/02/17 Alendronate [Fosamax] 70 mg PO FR 07/02/17 Aspirin 81 mg PO DAILY 07/02/17 Calcium Carbonate/Vitamin D3 [Calcium 600 + Vit D 400 Tablet] 1 each PO DAILY Furosemide [Lasix] 10 mg PO DAILY 07/02/17 Polyethylene Glycol 3350 [Miralax] 2 tbs PO TID 07/02/17 Potassium Chloride 10 meq PO .2-3/WEEK 07/02/17 Simvastatin 10 mg PO QPM 07/02/17 Verapamil HCl [Verapamil ER] 240 mg PO DAILY 07/02/17 Objective - Vital Signs/Intake & Output Reviewed Vital Signs: Yes Vital Signs: Vital Signs x48h Temp Pulse Resp BP Pulse Ox 07/05/17 08:00 36.4 C L 111 H 20 150/87 H 95 Intake & Output: Intake & Output 07/02/17 07/03/17 07/04/17 07/05/17 23:59 23:59 23:59 23:59 Intake Total 590 194 1940.000 220 Output Total 50 Balance 590 18970.000 220 - Objective General Appearance: positive: No acute distress, Alert. negative: Lethargic Eyes Bilateral: positive: Normal inspection, PERRL, No lid inflammation, Conjunctivae nml ENT: positive: ENT inspection nml, Pharynx nml, No signs of dehydration. negative: Purulent nasal drainage, Pharyngeal erythema, Oral lesions Neck: positive: Nml inspection, Thyroid nml, No JVD, Trachea midline. negative : Thyromegaly, Lymphadenopathy (R), Lymphadenopathy (L), Stiff neck, Carotid bruit, Swelling/bruising, Tracheal deviation Respiratory: positive: Chest non-tender, No respiratory distress, Other (some crackles at right lower lobe). negative: Wheezes, Rales, Rhonchi Cardiovascular: positive: Regular rate & rhythm, No murmur, No gallop. negative : Irregularly irregular, Extrasystoles, Tachycardia, Bradycardia, Systolic murmur, Diastolic murmur Peripheral Pulses: 2+ Radial (R), 2+ Radial (L), 2+ Dorsalis pedis (R), 2+ Dorsalis pedis (L) Abdomen: positive: Non-tender, No organomegaly, Nml bowel sounds, No distention. negative: Tenderness, Guarding, Rebound Back: positive: Nml inspection. negative: CVA tenderness (R), CVA tenderness (L ) Skin: positive: Color nml, No rash, Warm, Dry. negative: Cyanosis, Diaphoresis , Pallor Extremities: positive: Non-tender, Full ROM, Nml appearance. negative: Calf tenderness, Joint swelling, Zen's sign/cords Neurologic/Psychiatric: positive: Oriented x3, Sensation nml. negative: Sensory loss, Facial droop, Slurred/abnml speech, Depressed mood/affect - Lab Results Fish Bones: 07/05/17 05:15 07/05/17 05:15 Other Labs: Lab Results x24hrs 07/05/17 07/05/17 Range/Units 05:15 05:15 WBC 4.1 L (4.8-10.8) x10^3/uL RBC 3.32 L (4.20-5.40) 10^6/uL Hgb 10.7 L (12.0-16.0) g/dL Hct 34.9 L (37.0-47.0) % MCV 105.0 H (81.0-99.0) fL MCH 32.2 H (27.0-31.0) pg MCHC 30.6 L (32.0-36.0) g/dL RDW 14.6 (12.0-15.0) % Plt Count 212 (130-450) 10^3/uL MPV 7.2 L (7.9-10.8) fL Neut # 3.9 (1.5-6.6) 10^3/uL Lymph # 0.2 L (1.5-3.5) 10^3/uL [place] # 0.0 (0.0-1.0) 10^3/uL Eos # 0.0 (0.0-0.7) 10^3/uL Baso # 0.0 (0.0-0.1) 10^3/uL Absolute Nucleated RBC 0.00 x10^3/uL Nucleated RBC % 0.1 /100WBC Sodium 134 L (135-145) mmol/L Potassium 5.5 H (3.5-5.0) mmol/L Chloride 101 (101-111) mmol/L Carbon Dioxide 27 (21-32) mmol/L Anion Gap 6.0 (6-13) BUN 27 H (6-20) mg/dL Creatinine 1.0 (0.4-1.0) mg/dL Estimated GFR (MDRD) 53 L (>89) Glucose 132 H (70-100) mg/dL Calcium 8.3 L (8.5-10.3) mg/dL Assessment/Plan - Problem List (1) Pneumonia Impression: (1) Pneumonia Impression: improved. No fever, chill. mild cough. Sats is improving. without acute respiratory distress. continue antibiotics continue RT consult, and INH treatment. pt state she is desired to quit smoking CXR today reveals without acute changing as before continue antibiotics Rocephin and Azithyromycin preliminary blood culture negative continue RT and INH PRN treatment, vital monitor continue antibiotic, Rocephin and Azith following blood and sputum culture daily lab, vital monitor (2) Hypoxia Impression: pt report she feel much better for breathing. Sats of O2 is better, now 95% with 5 liter of O2. RT report pt had good Sats on 3 liter of O2, will plan without O2 supplement. continue solu-metrol at lower dosage 30mg tid Switch 20 mg Lasix to 20 mg PO to home 10 mg po ECHO reveals unremarkable, EF at 65-70% last night pt had episode of hypoxia CXR reveals without acute changing, stable add Duoneb, with Albuterol PRN, supplement of O2 as PRN advise pt quit smoking cigarette, add Nicotin patch pt seems no acute respiratory distress. Now it is 98% with 2 liter of O2 continue RT consult, O2 supplement as needed (3) Malnutrition Impression: follow up stencil cutter recommendations, stabilize the weight pt's BMI is 24, but pt report she loss weight recently continue nutrition consult, follow up the recommendation (4) HTN (hypertension) Impression: stable, continue home meds (5) Cyanosis Impression: stable, no complaints, Pt may need out-pt vascular surgeon pt report it is her chronic issue. Pt decline further intervention at this point. Pt may need out-pt vascular surgeon slight dark colon of bilateral dorsal foot. But QUINTIN on left 0.7, and right 0.6, and weakness of pulse bilateral foot. Pt is on ASA. I called vascular surgeon on [facility] but did not receive call back yet. Pt report her foot color has been slight changing for couple of years. Pt denies pain. Pt report she always has cold foot. It seems not urgent problem. Pt may need out-pt vascular surgeon (6) hyperkalemia pt's K is 5.5. pt is asymptomatic. NO chest pain/discomfort, no palpitation. EKG PRN once of kalexate (7) acute on chronic renal insufficiency improved. Today pt's creatinine is 1.0, GFR 53 continue hydration, hold nephrotoxical agents Qualifiers: Pneumonia type: due to unspecified organism Laterality: right Lung location: lower lobe of lung Qualified Code(s): J18.1 - Lobar pneumonia, unspecified organism
[2017-07-05] MEDS: SODIUM CHLORIDE FLUSH 0.9% 10 ML SYRINGE IVP SCH ×3 (11:04→18:41)
[2017-07-05] MEDS: AZITHROMYCIN INJ 500 MG in SODIUM CHLORIDE 0.9% 250 ML IV SCH (11:04)
[2017-07-05] MEDS: NICOTINE 14 MG PATCH TOP SCH (12:58)
[2017-07-05] MEDS: ALBUTEROL NEB 2.5 MG/3 ML INH PRN (13:39)
[2017-07-05] MEDS: POLYETHYLENE GLYCOL 3350 17 GM PACKET PO SCH (14:26)
[2017-07-05] MEDS: guaiFENesin 600 MG TABLET PO SCH ×2 (14:33→22:22)
[2017-07-05] MEDS: ATORVASTATIN 10 MG TABLET PO SCH (22:25)
[2017-07-06] MEDS: SODIUM CHLORIDE FLUSH 0.9% 10 ML SYRINGE IVP SCH ×3 (00:23→16:13)
[2017-07-06] MEDS: methylPREDNISolone SUCCINATE 40 MG/ML VIAL IVP SCH (05:51)
[2017-07-06] MEDS: SODIUM CHLORIDE FLUSH 0.9% 10 ML SYRINGE IVP PRN (05:51)
[2017-07-06] MEDS: IPRATROPIUM/ALBUTEROL 3 ML NEB INH PRN ×2 (07:51→20:39)
[2017-07-06 07:54] LABS: BASOPHILS % (AUTO) 0.1 %; HGB - HEMOGLOBIN 10.8 g/dL (12.0-16.0); LYMPHOCYTES # (AUTO) 0.2 10^3/uL (1.5-3.5); LYMPHOCYTES % (AUTO) 6.1 %; MEAN CORPUSCULAR HEMOGLOBIN 33.2 pg (27.0-31.0); MEAN CORPUSCULAR HGB CONC 31.6 g/dL (32.0-36.0); MEAN CORPUSCULAR VOLUME 105.2 fL (81.0-99.0); MONOCYTES # (AUTO) 0.1 10^3/uL (0.0-1.0); MONOCYTES % (AUTO) 3.9 %; NEUTROPHILS # (AUTO) 3.4 10^3/uL (1.5-6.6); NEUTROPHILS % (AUTO) 89.9 %; PLT - PLATELET COUNT 204 10^3/uL (130-450); RED BLOOD COUNT 3.26 10^6/uL (4.20-5.40); RED CELL DISTRIBUTION WIDTH 14.8 % (12.0-15.0); WHITE BLOOD COUNT 3.7 x10^3/uL (4.8-10.8)
[2017-07-06 08:07] LABS: ALKALINE PHOSPHATASE 20 IU/L (42-121); ALT ALANINE AMINOTRANSFERASE < 10 IU/L (10-60); AST ASPARTATE AMINOTRANSFERASE 14 IU/L (10-42); BILIRUBIN,TOTAL 0.2 mg/dL (0.2-1.0); BUN - BLOOD UREA NITROGEN 27 mg/dL (6-20); CALCIUM 8.5 mg/dL (8.5-10.3); CARBON DIOXIDE - CO2 29 mmol/L (21-32); CHLORIDE 100 mmol/L (101-111); CREATININE 1.2 mg/dL (0.4-1.0); GFR - MDRD 43 (>89); GLUCOSE 124 mg/dL (70-100); MAGNESIUM 2.2 mg/dL (1.7-2.8); SODIUM 136 mmol/L (135-145); TOTAL PROTEIN 6.1 g/dL (6.7-8.2)
[2017-07-06] MEDS: POLYETHYLENE GLYCOL 3350 17 GM PACKET PO SCH (08:49)
[2017-07-06] MEDS: NICOTINE 14 MG PATCH TOP SCH (08:49)
[2017-07-06] MEDS: CALCIUM CARB (OYSTER SHELL) 500 MG TABLET PO SCH (08:58)
[2017-07-06] MEDS: guaiFENesin 600 MG TABLET PO SCH (08:59)
[2017-07-06] MEDS: ASPIRIN CHEW 81 MG TABLET PO SCH (08:59)
[2017-07-06] MEDS: VERAPAMIL ER 120 MG TABLET PO SCH (08:59)
[2017-07-06] MEDS ORDERED: FUROSEMIDE 20 MG TABLET PO SCH ×2 (09:00→11:00)
[2017-07-06] MEDS: HEPARIN 5,000 UNIT/ML VIAL SUBQ SCH ×2 (09:03→21:08)
[2017-07-06] MEDS: cefTRIAXone 2 GM in SODIUM CHLORIDE 0.9% MINIBAG 100 ML IV SCH (09:08)
[2017-07-06] MEDS: AZITHROMYCIN INJ 500 MG in SODIUM CHLORIDE 0.9% 250 ML IV SCH (10:02)
[2017-07-06] MEDS: ACETAMINOPHEN 500 MG TABLET PO PRN ×2 (10:29→21:10)
--- NOTE | 2017-07-06 10:53 | PROVIDER PROGRESS NOTE ---
Subjective - Prog Note Date Prog Note Date: 07/06/17 - Subjective Pt reports feeling: No change Subjective: Nurse report pt has some edema at left elbow, right ankle and left orbit. I assess pt, pt did have slight edema at these area but there is not tenderness, pain, or warmth at these area. pt can move left elbow and right ankle joint freely and without pain. Pt was prescribed 30mg tid solu-medrol to treat her hypoxia, and some wheezing and COPD lung, and reduced her Lasix to her home 10 mg Lasix. Pt's steroid will gradually be waned off, and Lasix to 20 mg daily PO. Pt is planning to d/c to [facility] on tomorrow or after tomorrow if her continuing clinic improve. pt refused to further intervention to her lower QUINTIN and slight color changing on her lower bilateral foots. Pt denies pain. she state" I am 82 yrs old, I do not need any more treatment for my legs. This problem to me was for at least two years. I had chiropractics to treat for me". Current Medications - Current Medications Current Medications: Active Medications Acetaminophen (Tylenol) 1,000 mg PO Q8HR PRN PRN Reason: Pain or Fever > 38C (100.4F) Last Admin: 07/06/17 10:29 Dose: 1,000 mg Albuterol () 2.5 mg INH RTQ4H PRN PRN Reason: Wheezing Last Admin: 07/05/17 13:39 Dose: 2.5 mg Albuterol/Ipratropium (Duoneb) 3 ml INH Q4HR PRN PRN Reason: Wheezing Last Admin: 07/06/17 07:51 Dose: 3 ml Alendronate Sodium (Fosamax) 70 mg PO FR [facility] Last Admin: 07/04/17 02:34 Dose: Not Given Aspirin ([facility] [place] Aspirin) 81 mg PO DAILY [facility] Last Admin: 07/06/17 08:59 Dose: 81 mg Atorvastatin Calcium (Lipitor) 5 mg PO QPM [facility] Last Admin: 07/05/17 22:25 Dose: 5 mg Azithromycin (Zithromax) 250 mg PO DAILY [facility] Calcium Carbonate/Glycine (Oysco-500) 500 mg PO DAILY [facility] Last Admin: 07/06/17 08:58 Dose: 500 mg Furosemide (Lasix) 10 mg PO ONCE KATHLEEN Stop: 07/06/17 13:00 Furosemide (Lasix) 20 mg PO DAILY [facility] Heparin Sodium (Porcine) () 2,500 unit SUBQ BID [facility] Last Admin: 07/06/17 09:03 Dose: 2,500 unit Ceftriaxone Sodium 2 gm/ (Sodium Chloride) 100 mls @ 200 mls/hr IV DAILY [facility] Last Infusion: 07/06/17 09:38 Dose: Infused Nicotine (Nicoderm) 1 patch TOP DAILY [facility] Last Admin: 07/06/17 08:49 Dose: Not Given Ondansetron HCl (Zofran Inj) 4 mg IVP Q6HR PRN PRN Reason: Nausea / Vomiting Ondansetron HCl (Zofran Odt) 4 mg TL Q6HR PRN PRN Reason: Nausea / Vomiting Polyethylene Glycol (Miralax) 17 gm PO DAILY [facility] Last Admin: 07/06/17 08:49 Dose: Not Given Prednisone (Deltasone) 30 mg PO DAILYWM [facility] Sodium Chloride (Normal Saline Flush 0.9%) 10 ml IVP PRN PRN PRN Reason: NEEDED PER PROVIDER ORDERS Last Admin: 07/06/17 05:51 Dose: 10 ml Sodium Chloride (Normal Saline Flush 0.9%) 10 ml IVP 0100,0900,1700 [facility] Last Admin: 07/06/17 08:59 Dose: 10 ml Verapamil HCl (Calan Sa) 240 mg PO DAILY [facility] Last Admin: 07/06/17 08:59 Dose: 240 mg Acetaminophen [Tylenol Extra Strength] 1,000 mg PO TID 07/02/17 Alendronate [Fosamax] 70 mg PO FR 07/02/17 Aspirin 81 mg PO DAILY 07/02/17 Calcium Carbonate/Vitamin D3 [Calcium 600 + Vit D 400 Tablet] 1 each PO DAILY Furosemide [Lasix] 10 mg PO DAILY 07/02/17 Polyethylene Glycol 3350 [Miralax] 2 tbs PO TID 07/02/17 Potassium Chloride 10 meq PO .2-3/WEEK 07/02/17 Simvastatin 10 mg PO QPM 07/02/17 Verapamil HCl [Verapamil ER] 240 mg PO DAILY 07/02/17 Objective - Vital Signs/Intake & Output Reviewed Vital Signs: Yes Vital Signs: Vital Signs x48h Temp Pulse Pulse Resp BP Pulse Ox 07/06/17 08:00 36.3 C L 131 H 16 154/95 H 92 07/06/17 07:55 112 H 24 Intake & Output: Intake & Output 07/03/17 07/04/17 07/05/17 07/06/17 23:59 23:59 23:59 23:59 Intake Total 1947 6348.909 1832 100 Output Total 50 Balance 1897 9013.169 7643 100 - Objective General Appearance: positive: No acute distress, Alert. negative: Lethargic Eyes Bilateral: positive: Normal inspection, PERRL, No lid inflammation, Conjunctivae nml ENT: positive: ENT inspection nml, Pharynx nml, No signs of dehydration. negative: Purulent nasal drainage, Pharyngeal erythema, Oral lesions Neck: positive: Nml inspection, Thyroid nml, No JVD, Trachea midline. negative : Thyromegaly, Lymphadenopathy (R), Lymphadenopathy (L), Stiff neck, Carotid bruit, Swelling/bruising, Tracheal deviation Respiratory: positive: Chest non-tender, No respiratory distress, Breath sounds nml. negative: Wheezes, Rales, Rhonchi Cardiovascular: positive: Regular rate & rhythm, No murmur, No gallop. negative : Irregularly irregular, Extrasystoles, Tachycardia, Bradycardia, Systolic murmur, Diastolic murmur Peripheral Pulses: 1+ Radial (R), 1+ Radial (L), 1+ Dorsalis pedis (R), 1+ Dorsalis pedis (L) - Lab Results Fish Bones: 07/06/17 07:45 07/06/17 07:45 Other Labs: Lab Results x24hrs 07/06/17 07/06/17 Range/Units 07:45 07:45 WBC 3.7 L (4.8-10.8) x10^3/uL RBC 3.26 L (4.20-5.40) 10^6/uL Hgb 10.8 L (12.0-16.0) g/dL Hct 34.2 L (37.0-47.0) % MCV 105.2 H (81.0-99.0) fL MCH 33.2 H (27.0-31.0) pg MCHC 31.6 L (32.0-36.0) g/dL RDW 14.8 (12.0-15.0) % Plt Count 204 (130-450) 10^3/uL MPV 7.0 L (7.9-10.8) fL Neut # 3.4 (1.5-6.6) 10^3/uL Lymph # 0.2 L (1.5-3.5) 10^3/uL Mercer # 0.1 (0.0-1.0) 10^3/uL Eos # 0.0 (0.0-0.7) 10^3/uL Baso # 0.0 (0.0-0.1) 10^3/uL Absolute Nucleated RBC 0.00 x10^3/uL Nucleated RBC % 0.1 /100WBC Sodium 136 (135-145) mmol/L Potassium 4.5 (3.5-5.0) mmol/L Chloride 100 L (101-111) mmol/L Carbon Dioxide 29 (21-32) mmol/L Anion Gap 7.0 (6-13) BUN 27 H (6-20) mg/dL Creatinine 1.2 H (0.4-1.0) mg/dL Estimated GFR (MDRD) 43 L (>89) Glucose 124 H (70-100) mg/dL Calcium 8.5 (8.5-10.3) mg/dL Magnesium 2.2 (1.7-2.8) mg/dL Total Bilirubin 0.2 (0.2-1.0) mg/dL AST 14 (10-42) IU/L ALT < 10 L (10-60) IU/L Alkaline Phosphatase 20 L (42-121) IU/L Total Protein 6.1 L (6.7-8.2) g/dL Albumin 3.0 L (3.2-5.5) g/dL Globulin 3.1 (2.1-4.2) g/dL Albumin/Globulin Ratio 1.0 (1.0-2.2) Assessment/Plan - Problem List (1) Pneumonia Impression: (1) Pneumonia Impression: improved, change to PO antibiotics, planning d/c with PO antibiotics improved. No fever, chill. mild cough. Sats is improving. without acute respiratory distress. continue antibiotics continue RT consult, and INH treatment. pt state she is desired to quit smoking CXR today reveals without acute changing as before continue antibiotics Rocephin and Azithyromycin preliminary blood culture negative continue RT and INH PRN treatment, vital monitor continue antibiotic, Rocephin and Azith following blood and sputum culture daily lab, vital monitor (2) Hypoxia Impression: great improved from previous, pt may need Oxygen when Pt d/c from hospital per RT report. will gradually wane off steroid continue RT, INH treatment as needed pt report she feel much better for breathing. Sats of O2 is better, now 95% with 5 liter of O2. RT report pt had good Sats on 3 liter of O2, will plan without O2 supplement. continue solu-metrol at lower dosage 30mg tid Switch 20 mg Lasix to 20 mg PO to home 10 mg po ECHO reveals unremarkable, EF at 65-70% last night pt had episode of hypoxia CXR reveals without acute changing, stable add Duoneb, with Albuterol PRN, supplement of O2 as PRN advise pt quit smoking cigarette, add Nicotin patch pt seems no acute respiratory distress. Now it is 98% with 2 liter of O2 continue RT consult, O2 supplement as needed (3) Malnutrition Impression: follow up ad copy writer recommendations, stabilize the weight pt's BMI is 24, but pt report she loss weight recently continue nutrition consult, follow up the recommendation (4) HTN (hypertension) Impression: stable, continue home meds (5) Cyanosis Impression: pt refused to have further intervention stable, no complaints, Pt may need out-pt vascular surgeon pt report it is her chronic issue. Pt decline further intervention at this point. Pt may need out-pt vascular surgeon slight dark colon of bilateral dorsal foot. But QUINTIN on left 0.7, and right 0.6, and weakness of pulse bilateral foot. Pt is on ASA. I called vascular surgeon on but did not receive call back yet. Pt report her foot color has been slight changing for couple of years. Pt denies pain. Pt report she always has cold foot. It seems not urgent problem. Pt may need out-pt vascular surgeon (6) hyperkalemia resolved. today it is K 4.5 pt's K is 5.5. pt is asymptomatic. NO chest pain/discomfort, no palpitation. EKG PRN once of kalexate (7) acute on chronic renal insufficiency as her baseline, continue monitor, hydration improved. Today pt's creatinine is 1.0, GFR 53 continue hydration, hold nephrotoxical agents (8) extremities edema pt present slight edema at left elbow, right ankle, and left orbit. It might be caused by steroid and reduced usage of Lasix, pt took 10 mg Lasix at home wane off Steroid gradually Lasix to 20 mg po pt has chronic slight high potassium level, so Aldactone is not choice (9) oral thrush most likely be caused by Steroid wane off Steroid gradually add Nystatin oral Qualifiers: Pneumonia type: due to unspecified organism Laterality: right Lung location: lower lobe of lung Qualified Code(s): J18.1 - Lobar pneumonia, unspecified organism
[2017-07-06] MEDS: NYSTATIN 500000 UNITS/5 ML UDC PO SCH ×3 (11:23→21:10)
[2017-07-06] MEDS: predniSONE 20 MG TABLET PO SCH (11:24)
[2017-07-06] MEDS ORDERED: predniSONE 20 MG TABLET PO SCH (12:00)
[2017-07-06] MEDS: ATORVASTATIN 10 MG TABLET PO SCH (21:10)
[2017-07-07 05:00] LABS: BASOPHILS % (AUTO) 0.2 %; EOSINOPHILS % (AUTO) 0.1 %; HGB - HEMOGLOBIN 10.4 g/dL (12.0-16.0); LYMPHOCYTES # (AUTO) 0.2 10^3/uL (1.5-3.5); LYMPHOCYTES % (AUTO) 5.6 %; MEAN CORPUSCULAR HEMOGLOBIN 33.1 pg (27.0-31.0); MEAN CORPUSCULAR HGB CONC 31.8 g/dL (32.0-36.0); MEAN PLATELET VOLUME 7.3 fL (7.9-10.8); MONOCYTES # (AUTO) 0.3 10^3/uL (0.0-1.0); MONOCYTES % (AUTO) 8.5 %; NEUTROPHILS # (AUTO) 3.1 10^3/uL (1.5-6.6); NEUTROPHILS % (AUTO) 85.6 %; PLT - PLATELET COUNT 198 10^3/uL (130-450); RED BLOOD COUNT 3.14 10^6/uL (4.20-5.40); RED CELL DISTRIBUTION WIDTH 15.1 % (12.0-15.0); WHITE BLOOD COUNT 3.6 x10^3/uL (4.8-10.8)
[2017-07-07 05:16] LABS: ALBUMIN 3.1 g/dL (3.2-5.5); ALBUMIN/GLOBULIN RATIO 1.2 (1.0-2.2); BILIRUBIN,TOTAL 0.4 mg/dL (0.2-1.0); CALCIUM 8.6 mg/dL (8.5-10.3); CREATININE 1.2 mg/dL (0.4-1.0); TOTAL PROTEIN 5.7 g/dL (6.7-8.2)
[2017-07-07] MEDS: SODIUM CHLORIDE FLUSH 0.9% 10 ML SYRINGE IVP SCH ×2 (06:33→10:03)
[2017-07-07] MEDS ORDERED: FUROSEMIDE 20 MG TABLET PO SCH (09:00)
[2017-07-07] MEDS ORDERED: AZITHROMYCIN 250 MG TABLET PO SCH (09:00)
[2017-07-07] MEDS: cefTRIAXone 2 GM in SODIUM CHLORIDE 0.9% MINIBAG 100 ML IV SCH (09:55)
[2017-07-07] MEDS: HEPARIN 5,000 UNIT/ML VIAL SUBQ SCH (10:03)
[2017-07-07] MEDS: predniSONE 20 MG TABLET PO SCH (10:05)
[2017-07-07] MEDS: ASPIRIN CHEW 81 MG TABLET PO SCH (10:06)
--- NOTE | 2017-07-07 10:06 | Discharge Plan ---
"Discharge Plan for SNF / NOEMI - DC Plan and Transition Orders Disposition: 03 SNF DC/Xfer Condition: Poor SNF Transition Orders: Admit to: [[facility]] under the care of [Doctor Joanna Elizabeth] Discharge Diagnosis: [Pneumonia, respiratory distress, COPD, severe kyphoscoliosis, osteoporosis, CAD , PAD, right breast cancer with right mastectomy in 2000, HTN, chronic edema, malnutrition] Medicare Certification: I certify that [facility] care is medically necessary on a continuing basis for any of the conditions for which she/he is receiving care during hospitalization. Notify PCP of admission and forward orders to primary provider for signature. Weight on admission and[41.5 kg]. Call PCP immediately if weight increases by [ 3] pounds or if patient develops dyspnea, chest pain/tightness or edema. House Bowel Program: [Yes] If no BM after 2 days, nurse may give M.O.M. 30ml PO PRN and /or ducolax Supp 1 W[place] and /or SHERRELL 250mg P.O., and/or senna 1-2 tabs PO. On day 3 nurse may give repeat above order until residents constipation is resolved. Immunizations: Annual Influenza Vaccine: [Yes]. (between Nov 29 and June 28.) Unless allergy or already given Two-Step PPD: [Yes] per [facility] [id number] or appropriate documentation of approved exceptions Treatments & Other Orders: [may see when pt is arrival to [facility]] Oxygen Orders: [Y] Lab Tests or X-Rays Orders: [may follow up ] Orthopedic Orders: [n]. Medications: PLEASE REFER TO THE DISCHARGE MEDICATION LIST. Insulin Orders? [No] Diagnosis: Diabetes Initiate hypo and hyperglycemia protocols for BG <70 and BG >375. May check BG prn for signs/symptoms of dysglycemia. Frequency of BG checks: [AC/Meal/HS] Basal Insulin: [] Lantus 100 units / ml inject subq as follows: [] [] Other: [] Correction Insulin: - Select the type of insulin below [Choose: Novolog/Humalog]100 units /ml insulin inject subq per orders indicate below [] LOW DOSE [] MODERATE DOSE [] MODERATE/HIGH DOSE [] HIGH DOSE GB UNITS GB UNITS GB UNITS GB UNITS 61-140 0 UNITS 61-140 0 UNITS 61-140 0 UNITS 61-140 0 UNITS 141-175 1 UNITS 141-175 1 UNITS 141-175 2 UNITS 141-175 3 UNITS 176-225 2 UNITS 176-225 3 UNITS 176-225 4 UNITS 176-225 5 UNITS 226-275 3 UNITS 226-275 5 UNITS 226-275 6 UNITS 226-275 7 UNITS 276-325 4 UNITS 276-325 7 UNITS 276-325 8 UNITS 276-325 9 UNITS 326-375 5 UNITS 326-375 9 UNITS 326-375 10 UNITS 326-375 11 UNITS >375 CONTACT MD >375 CONTACT MD >375 CONTACT MD >375 CONTACT MD Custom Dosing: [Choose: None/Novolog/Humalog] 100 units/ml Insulin inject subq as follows: GB Units 61-140 [] Units 141-175 [] Units 176-225 [] Units 226-275 [] Units 276-325 []Units 326-375 [] Units >375 Contact MD Allergies and Adverse Reactions: Allergies Allergy/AdvReac Type Severity Reaction Status Date / Time oxycodone Allergy Hallucinati Verified 07/02/17 12:05 ons - Medications New Prescriptions: Ipratropium/Albuterol [Duoneb] 3 ml INH Q4HR PRN #1 neb PRN Reason: Wheezing Albuterol 2.5 mg INH RTQ4H PRN #1 neb PRN Reason: Wheezing Amox/Clav 500/125 [Augmentin] 1 each PO Q12H #10 tablet predniSONE [Deltasone] 20 mg PO DAILYWM #3 tablet - Diet Type: Geriatric Texture: Regular Liquids: Thin May have monthly special meal: Yes - Therapies | Activity Therapy: Evaluation | Treat if indicated: PT, OT Rehabilitation Potential: Maximize functional status Activity: Activity as Tolerated Weight Bearing: Full Weight Assistance Devices: Walker Additional Instructions: May see Dr. Elizabeth as pt arrival to [facility] . Pt has a slight hyperkalemia in hospital, so 10 meq Potassium is hold on home meds list now."
[2017-07-07] MEDS: NICOTINE 14 MG PATCH TOP SCH (10:07)
[2017-07-07] MEDS: NYSTATIN 500000 UNITS/5 ML UDC PO SCH ×2 (10:07→14:23)
[2017-07-07] MEDS: CALCIUM CARB (OYSTER SHELL) 500 MG TABLET PO SCH (10:07)
[2017-07-07] MEDS: POLYETHYLENE GLYCOL 3350 17 GM PACKET PO SCH (10:08)
[2017-07-07] MEDS: VERAPAMIL ER 120 MG TABLET PO SCH (10:11)
--- NOTE | 2017-07-07 13:20 | DISCHARGE SUMMARY ---
Discharge Summary Discharge Date: 07/07/17 Discharging Provider: CHOW Primary Care Provider: Octavia Jimenez Code Status: Do Not Attempt Resuscitation Condition at Discharge: Poor Discharge Disposition: SNF DC/Xfer Discharge Facility Name: [facility] - DIAGNOSES Admission Diagnoses: (1) Pneumonia (2) Hypoxia (3) Malnutrition (4) HTN (hypertension) (5) Cyanosis Discharge Diagnoses with Status of Each Condition: (1) Pneumonia no fever, chill, cough. continue antibiotics course. (2) Hypoxia 91% Sats of O2 on room air on rest, 86% Sats on ambulation on room air, 94% Sats on 2 liter of O2 on ambulation. Pt request O2 when she ambulates. 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 pt declined further intervention in the hospital. Pt may follow up out-pt vascular surgeon pt had ECHO which reveals unremarkable. (6) hyperkalemia resolved (7) acute on chronic renal insufficiency stable (8) extremities edema chronic condition, significant reduced, (9) oral thrush improved. prescribe Nystatin oral PRN - HPI History of Present Illness: please refer from Dr. Erwin's HPI for this pt. - HOSPITAL COURSE Hospital Course: pt was found to have pneumonia with significant PMH of severe kyphoscoliosis, COPD, current cigarette smoker, malnutrition status. Pt was treated with antibiotics. Pt developed hypoxia at hospital. Pt had ECHO which was unremarkable. Pt then was treated with lower dosage of steroid and lower dosage of Lasix. Pt's symptoms seems greatly improved. Pt had cyanosis on bilateral foot. 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 Pt declined to have further intervention. - ALLERGIES Allergies/Adverse Reactions: Allergies Allergy/AdvReac Type Severity Reaction Status Date / Time oxycodone Allergy Hallucinati Verified 07/02/17 12:05 ons - MEDICATIONS Home Medications: Ambulatory Orders Medication Instructions Recorded Confirmed Acetaminophen [Tylenol Extra 1,000 mg PO TID 07/02/17 07/02/17 Strength] Alendronate [Fosamax] 70 mg PO FR 07/02/17 07/02/17 Aspirin 81 mg PO DAILY 07/02/17 07/02/17 Calcium Carbonate/Vitamin D3 1 each PO DAILY 07/02/17 07/02/17 [Calcium 600-Vit D3 400 Tablet] Furosemide [Lasix] 10 mg PO DAILY 07/02/17 07/02/17 Polyethylene Glycol 3350 [Miralax] 2 tbs PO TID 07/02/17 07/02/17 Simvastatin 10 mg PO QPM 07/02/17 07/02/17 Verapamil HCl [Verapamil ER] 240 mg PO DAILY 07/02/17 07/02/17 Albuterol 2.5 mg INH RTQ4H PRN #1 neb 07/07/17 Amox/Clav 500/125 [Augmentin] 1 each PO Q12H #10 tablet 07/07/17 Ipratropium/Albuterol [Duoneb] 3 ml INH Q4HR PRN #1 [facility] 07/07/17 Nystatin 400,000 unit PO TID PRN #30 ml 07/07/17 predniSONE [Deltasone] 20 mg PO DAILYWM #3 tablet 07/07/17 - PHYSICAL EXAM AT DISCHARGE General Appearance: positive: No acute distress, Alert. negative: Lethargic Eyes Bilateral: positive: Normal inspection, PERRL, No lid inflammation, Conjunctivae nml ENT: positive: ENT inspection nml, Pharynx nml, No signs of dehydration. negative: Purulent nasal drainage, Pharyngeal erythema, Oral lesions Neck: positive: Nml inspection, Thyroid nml, No JVD, Trachea midline. negative : Thyromegaly, Stiff neck, Carotid bruit, Swelling/bruising, Tracheal deviation Respiratory: positive: Chest non-tender, No respiratory distress, Breath sounds nml. negative: Wheezes, Rales, Rhonchi Cardiovascular: positive: Regular rate & rhythm, No murmur, No gallop. negative : Irregularly irregular, Extrasystoles, Tachycardia, Bradycardia, Systolic murmur, Diastolic murmur Peripheral Pulses: positive: 2+ Abdomen: positive: Non-tender, No organomegaly, Nml bowel sounds, No distention. negative: Tenderness, Guarding, Rebound Back: negative: CVA tenderness (R), CVA tenderness (L) Skin: positive: Color nml, No rash, Warm, Dry, Cyanosis. negative: Diaphoresis , Pallor, Skin rash Extremities: positive: Non-tender, Full ROM, Nml appearance. negative: Calf tenderness, Joint swelling, Zen's sign/cords Neurologic/Psychiatric: positive: Oriented x3, Sensation nml, Mood/affect nml. negative: Sensory loss, Facial droop, Slurred/abnml speech, Depressed mood/ affect - LABS Result Diagrams: 07/07/17 04:50 07/07/17 04:50 - FOLLOW UP Follow Up: pt was d/c to [facility], may see Dr. Elizabeth on arrival to [facility]. - TIME SPENT Time Spent in Discharge (Minutes): 55
[2017-07-07 15:51] VITALS: BP 140/74
== END 2017-07-07 16:30 | DRG 194 ==
LOC: EDUNIT# → ED 11:57 → MS2 15:30
PROVIDERS: ADMIT Specialist; ATTEND Nurse Practitioner Gerontology
DX: J18.1 Lobar pneumonia, unspecified organism (principal); B37.0 Candidal stomatitis; I50.9 Heart failure, unspecified; J44.0 Chronic obstructive pulmonary disease with (acute) lower respiratory infection; E44.0 Moderate protein-calorie malnutrition; I77.2 Rupture of artery; I70.209 Unspecified atherosclerosis of native arteries of extremities, unspecified extremity; I13.10 Hypertensive heart and chronic kidney disease without heart failure, with stage 1 through stage 4 chronic kidney disease, or unspecified chronic kidney disease; N18.9 Chronic kidney disease, unspecified; R09.02 Hypoxemia; E87.5 Hyperkalemia; M41.50 Other secondary scoliosis, site unspecified; M80.08XS Age-related osteoporosis with current pathological fracture, vertebra(e), sequela; G89.29 Other chronic pain; I25.10 Atherosclerotic heart disease of native coronary artery without angina pectoris; E78.5 Hyperlipidemia, unspecified; F17.210 Nicotine dependence, cigarettes, uncomplicated; Z85.3 Personal history of malignant neoplasm of breast; Z90.11 Acquired absence of right breast and nipple; Z90.5 Acquired absence of kidney; Z79.82 Long term (current) use of aspirin; Z86.79 Personal history of other diseases of the circulatory system; Z68.24 Body mass index [BMI] 24.0-24.9, adult
CPT/HCPCS: 36415; 71045; 71046; 80048; 80053; 83605; 83690; 83735; 84550; 85025; 87040; 87070; 87205; 93306; 93922; 94640; 94761; 99284

== ENCOUNTER 2017-07-07 16:31 | Outpatient (CLI) | payer MEDICARE | END 2017-07-07 16:32 | LOC: EMS 16:31 | PROVIDERS: ATTEND Surgery | DX: R53.1 Weakness (principal); M54.9 Dorsalgia, unspecified | CPT/HCPCS: A0425; A0428 ==